=== PATIENT | female | born 1975 | race Caucasian/White ===

== ENCOUNTER → 2016-12-14 | Outpatient (CLI) | payer BC ==
[2016-12-14 17:06] VITALS: BP 129/85; PULSE 68; RESP 14; TEMP 98.3; BMI 33.9
== END | disposition home or self-care (01) ==
LOC: BARWHC3 15:28
PROVIDERS: ATTEND Surgery Plastic and Reconstructive Surgery
DX: Z48.815 Encounter for surgical aftercare following surgery on the digestive system (principal); E66.01 Morbid (severe) obesity due to excess calories; Z68.33 Body mass index [BMI] 33.0-33.9, adult; E21.1 Secondary hyperparathyroidism, not elsewhere classified; E89.1 Postprocedural hypoinsulinemia; Z98.84 Bariatric surgery status; D50.8 Other iron deficiency anemias; E44.0 Moderate protein-calorie malnutrition; E55.9 Vitamin D deficiency, unspecified; K74.1 Hepatic sclerosis; T56.894A Toxic effect of other metals, undetermined, initial encounter; K50.90 Crohn's disease, unspecified, without complications
CPT/HCPCS: 99211

== ENCOUNTER → 2016-12-17 | Outpatient (CLI) | payer BC ==
[2016-12-17 11:30] LABS: CH 27.9; HCT 36.9 % (34.0-46.0); HDW 2.87; HGB 12.2 gm/dL (11.4-16.0); MCV 84.7 fL (80.0-100.0); Mean Platelet Volume 6.8; RBC 4.35 m/uL (3.80-5.40); RDW 13.5 % (11.5-15.5); WBC 5.5 k/uL (3.8-10.6)
[2016-12-17 11:40] LABS: INR 1.1 (<1.1); Partial Thromboplastin Time 25.3 sec (22.0-30.0); Prothrombin Time 10.8 sec (9.0-12.0)
[2016-12-17 11:56] LABS: ALT 30 U/L (9-52); AST 18 U/L (14-36); Alkaline Phosphatase 64 U/L (38-126); Anion Gap 12 mmol/L; Blood Urea Nitrogen 15 mg/dL (7-17); Calcium 9.5 mg/dL (8.4-10.2); Carbon Dioxide 26 mmol/L (22-30); Chloride 105 mmol/L (98-107); Cholesterol 195 mg/dL (<200); Glucose 88 mg/dL (74-99); HDL Cholesterol 51 mg/dL (40-60); Iron 46 ug/dL (37-170); Magnesium 2.1 mg/dL (1.6-2.3); Non-African American GFR(MDRD) >60 (>60 ml/min/1.73 sqM); Phosphorous 4.1 mg/dL (2.5-4.5); Potassium 4.9 mmol/L (3.5-5.1); Sodium 143 mmol/L (137-145); Total Bilirubin 0.5 mg/dL (0.2-1.3); Total Protein 7.5 g/dL (6.3-8.2); Triglycerides 127 mg/dL (<150)
[2016-12-17 12:06] LABS: % Iron Saturation 11.9 % (20-50); Prealbumin 22 mg/dL (18-36); Total Iron Binding Capacity 386 ug/dL (265-497)
[2016-12-17 12:18] LABS: Hemoglobin A1C 4.8 % (4.2-6.1)
[2016-12-17 13:02] LABS: Vitamin B12 985 pg/mL (239-931)
[2016-12-23 11:06] LABS: Selenium 129 mcg/L (63-160)
== END | disposition home or self-care (01) ==
LOC: LABWHC1 10:55
PROVIDERS: ATTEND Surgery Plastic and Reconstructive Surgery
DX: T56.894A Toxic effect of other metals, undetermined, initial encounter (principal); K50.90 Crohn's disease, unspecified, without complications; K74.1 Hepatic sclerosis; E55.9 Vitamin D deficiency, unspecified; K90.89 Other intestinal malabsorption; D50.8 Other iron deficiency anemias; E21.1 Secondary hyperparathyroidism, not elsewhere classified
CPT/HCPCS: 36415; 80053; 80061; 82306; 82525; 82607; 82728; 82746; 83036; 83540; 83550; 83735; 83970; 84100; 84134; 84255; 84425; 84443; 84590; 84630; 85027; 85610; 85730

== ENCOUNTER → 2017-02-09 | Outpatient (CLI) | payer BC ==
[2017-02-09 10:06] VITALS: BP 127/93; PULSE 71; RESP 16; TEMP 98.4; BMI 33.2
--- NOTE | 2017-03-23 20:31 | P.PN ---
Progress Note - Text DATE OF SERVICE: 02/09/2017. CHIEF COMPLAINT: Follow-up sleeve gastrectomy. HISTORY OF PRESENT ILLNESS: Jess Graham is a 41-year-old female who is status post sleeve gastrectomy June 18, 2015. She is less than 2 years out. Her highest weight for her 5-foot, 7-frame is 280 pounds. Her ideal body weight is 158 pounds. Today she comes in weighing 212 pounds. She has lost another 4 pounds in 2 months. Body mass index is reduced from 43.9 to 33.2. Maintained percent excess weight loss 56%. She comes in with troubles with her thyroid. She has been eating moderate amount of carbohydrates. She reports trying to get fit as result she has weight loss. No new medication changes in the last 3 months. PAST MEDICAL HISTORY: 1. Fatty liver disease. 2. Hypertension, improved. 3. Vitamin B12 deficiency. 4. Osteoarthritis of the right knee. 5. Osteoarthritis of the shoulder. 6. Thyroid disorder. 7. Obstructive sleep apnea, improved. PAST SURGICAL HISTORY: 1. Cholecystectomy. 2. Right knee arthroscopy. 3. Removal of polyps along the back. 4. Cholecystectomy. 5. Status post sleeve gastrectomy. MEDICATIONS: 1. Benadryl. 2. control. 3. Omeprazole. 4. Nystatin. 5. Multivitamin. 6. Claritin. 7. Synthroid. 8. Hydrocortisone cream. 9. Calcium. ALLERGIES: ZITHROMAX. SOCIAL HISTORY: Lifelong nontobacco user. FAMILY HISTORY: Notable for morbid obesity. No reports of gastrointestinal cancers. Also has inflammatory bowel disease in her family. REVIEW OF SYSTEMS: CONSTITUTIONAL: Her highest weight for her 5-foot, 7-frame is 280 pounds. Her ideal body weight is 158 pounds. Today she comes in weighing 212 pounds. She has gained 21 pounds from her lowest weight 1 year ago. Since her last visit 2 months ago, she has lost 4 pounds. Body mass index is reduced from 43.9 to 33.2. Maintained percent excess weight loss 56%. Her lowest weight was 191 pounds. RESPIRATORY: Resolved obstructive sleep apnea. Denies asthma. ENDOCRINE: Resolved prediabetic state. History of hypothyroidism. MUSCULOSKELETAL: Osteoarthritis is completely resolved. GASTROINTESTINAL: Now with gastroesophageal reflux disease. No dumping syndrome. HEENT: Wears glasses. No troubles with hearing. CARDIOVASCULAR: History of hypertension. Denies any palpitations. NEURO: No reports of stroke or seizure disorder. PSYCH: No reports of depression or suicidal ideation. HEMATOLOGIC: Denies any easy bruising or bleeding. PHYSICAL EXAM: VITAL SIGNS: 5 feet 7 inches, 212 pounds. Body mass index 33.2. Vital Signs 02/09/17 10:03 Temperature 98.4 F Pulse Rate 71 Respiratory 16 Rate Blood Pressure 127/93 GENERAL: Well-developed female in no acute distress. ABDOMEN: Findings consistent with panniculitis. Soft, nondistended, nontender. MUSCULOSKELETAL: No clubbing, cyanosis, or edema. NEURO: No focal or lateralizing signs. HEENT: No sclerae icterus. Extraocular movements grossly intact. Moist buccal mucosa. NECK: Supple without lymphadenopathy. CHEST: Unlabored respirations with equal bilateral excursions. CARDIOVASCULAR: Regular rate and rhythm. PSYCH: Appropriate affect. Alert and oriented to person, place, and time. ASSESSMENT: 1. Morbid obesity due to excess caloric intake 2. Body mass index reduced from 43.9 down to 33.2. 3. Status post sleeve gastrectomy. 4. Dietary surveillance and counseling. 5. Panniculitis. 6. Weight gain following bariatric procedure. 7. Hypothyroidism. 8. Iatrogenic hyperthyroidism. PLAN: 1. Recommend adjustment of medications for her iatrogenic hyperthyroidism. 2. Recommend recheck of her thyroid stimulating hormone. 3. Recommend adjustment of carbohydrate diet. 4. Recommend dietary journal. 5. Written prescription of her thyroid medication including skin cream was written on her behalf. 6. Follow-up in one year.
== END | disposition home or self-care (01) ==
LOC: BARWHC3 09:27
PROVIDERS: ATTEND Surgery Plastic and Reconstructive Surgery
DX: E66.01 Morbid (severe) obesity due to excess calories (principal); M79.3 Panniculitis, unspecified; R63.5 Abnormal weight gain; E03.9 Hypothyroidism, unspecified; E05.80 Other thyrotoxicosis without thyrotoxic crisis or storm; Z68.33 Body mass index [BMI] 33.0-33.9, adult; Z71.3 Dietary counseling and surveillance; Z98.84 Bariatric surgery status; Z79.899 Other long term (current) drug therapy; Z88.1 Allergy status to other antibiotic agents
CPT/HCPCS: 99211

== ENCOUNTER → 2018-08-07 | Outpatient (CLI) | payer BC ==
--- NOTE | 2018-08-07 14:10 | US ---
EXAMINATION TYPE: US thyroid st tissue head/neck DATE OF EXAM: 08/07/2018 COMPARISON: NONE CLINICAL HISTORY: E04.9 Goiter, E03.9 Hypothyroidism. Patient states being on Thyroid meds. No previ ous imaging. GLAND SIZE: Right Lobe: 5.0 x 1.7 x 1.1 cm Overall Parenchyma: heterogenous Left Lobe: 3.9 x 2.4 x 1.2 cm Overall Parenchyma: heterogeneous Isthmus Thickness: 0.1 cm NODULES RIGHT: # of nodules measured on right: 0 LEFT: # of nodules measured on left: 0 ISTHMUS: # of nodules measured in the isthmus: 0 Bilateral neck scanned, no evidence of lymphadenopathy. Right lobe appears enlarged. IMPRESSION: 1. No suspicious nodules.
== END ==
LOC: RADUSWWP 07:13
PROVIDERS: ATTEND Internal Medicine
DX: E04.9 Nontoxic goiter, unspecified (principal); E03.9 Hypothyroidism, unspecified
CPT/HCPCS: 76536

== ENCOUNTER → 2018-08-08 | Outpatient (CLI) | payer BC ==
--- NOTE | 2018-08-08 09:37 | MM ---
Reason for exam: screening (asymptomatic). Baseline mammogram. History: Took hormonal contraceptives for 8 years beginning at age 21. Physical Findings: Nurse did not find any significant physical abnormalities on exam. MG 3D Screening Mammo W/Cad Bilateral CC and MLO view(s) were taken. There are scattered fibroglandular densities. No suspicious calcifications are seen. Nodule upper outer left breast 5.7cm from nipple. These results were verbally communicated with the patient and result sheet given to the patient on 08/08/18. ASSESSMENT: Incomplete: need additional imaging evaluation, BI-RAD 0 RECOMMENDATION: Ultrasound of the left breast. [facility] will attempt to contact patient to return for ultrasound.
--- NOTE | 2018-08-08 09:38 | USB ---
Reason for exam: additional evaluation requested from abnormal screening. History: Took hormonal contraceptives for 8 years beginning at age 21. Physical Findings: Breast exam preformed at baseline screening. US Breast Workup Limited LT Left limited breast ultrasound including focal area of concern, retroareolar and axilla demonstrates a 5 x 4 x 6mm oval, hypoechoic, vascular lesion at 2 o'clock, possible lymph node. These results were verbally communicated with the patient and result sheet given to the patient on 08/08/18. ASSESSMENT: Benign, BI-RAD 2 RECOMMENDATION: Return to routine screening mammogram schedule for both breasts.
== END | disposition home or self-care (01) ==
LOC: RADMAMWWP 06:55
PROVIDERS: ATTEND Internal Medicine
DX: R92.8 Other abnormal and inconclusive findings on diagnostic imaging of breast (principal)
CPT/HCPCS: 77063; 77067

== ENCOUNTER → 2020-05-26 | Outpatient (CLI) | payer BC ==
--- NOTE | 2020-05-26 12:28 | US ---
EXAMINATION TYPE: US carotid duplex BILAT DATE OF EXAM: 05/26/2020 COMPARISON: NONE CLINICAL HISTORY: 45-year-old female R03. Abnormal blood-pressure reading, without diag. unequal bloo d pressure, right greater than left with difference greater than 20 TECHNIQUE: Carotid duplex ultrasound examination. Indirect Doppler criteria utilized. FINDINGS: EXAM MEASUREMENTS: RIGHT: Peak Systolic Velocity (PSV) cm/sec ----- Right CCA: 103 ----- Right ICA: 118 ----- Right ECA: 98.1 ICA/CCA ratio: 1.15 RIGHT: End Diastole cm/sec ----- Right CCA: 30.5 ----- Right ICA: 71.5 ----- Right ECA: 18.8 LEFT: Peak Systolic Velocity (PSV) cm/sec ----- Left CCA: 84.8 ----- Left ICA: 98.2 ----- Left ECA: 88.9 ICA/CCA ratio: 1.16 LEFT: End Diastole cm/sec ----- Left CCA: 27.7 ----- Left ICA: 61.7 ----- Left ECA: 17.0 VERTEBRALS (direction of flow): Right Vertebral: Antegrade Left Vertebral: Antegrade Rhythm: Normal Clinical Laboratory Technologist notes: Minimal plaque noted bilateral bifurcations. No evidence of significant stenosis IMPRESSION: Peak systolic velocities and ICA/CCA ratios indicate no evidence for hemodynamically significant ICA stenosis on either side. Criteria for Assigning % of Stenosis / Diameter reduction (Estimation based on the indirect measurements of the internal carotid artery velocities (ICA PSV). 1. Normal (no stenosis)=ICA PSV < 125 cm/s: ratio < 2.0: ICA EDV<40 cm/s. 2. Less than 50% stenosis=ICA PSV < 125 cm/s: ratio < 2.0: ICA EDV<40 cm/s. 3. 50 to 69% stenosis=ICA PSV of 125 to 230 cm/s: ration 2.0 ? 4.0: ICA EDV 40-100 cm/s. 4. Greater than 70% stenosis to near occlusion= ICA PSV > 230 cm/s: ratio > 4.0: ICA EDV > 100 cm/s. 5. Near occlusion= ICA PSV velocities may be low or undetectable: variable ratio and ICA EDV. 6. Total occlusion=unable to detect flow.
--- NOTE | 2020-05-27 10:04 | P.ARTDOP ---
Arterial Doppler Upper extremity arterial Doppler: Reason for study: Hand and finger numbness Date of study: 05/26/2020 Findings: Doppler waveforms are multiphasic and normal in appearance throughout. No significant right to left or segmental gradients.. Impression: Normal upper extremity arterial Doppler.
== END | disposition home or self-care (01) ==
LOC: RADUSWWP 07:09
PROVIDERS: ATTEND Internal Medicine
DX: R93.89 Abnormal findings on diagnostic imaging of other specified body structures (principal); R03.0 Elevated blood-pressure reading, without diagnosis of hypertension
CPT/HCPCS: 93880; 93923

== ENCOUNTER 2021-11-02 01:00 | Emergency (ER) | payer BC ==
[2021-11-02] MEDS ORDERED: cloNIDine HCL 0.2 MG TAB PO STA (02:43)
[2021-11-02] MEDS ORDERED: ACETAMINOPHEN TAB 325 MG TAB PO STA (02:43)
--- NOTE | 2021-11-02 03:06 | ED ---
General Adult HPI - General Chief complaint: Recheck/Abnormal Lab/Rx Stated complaint: High BP Time Seen by Provider: 11/02/21 02:29 Source: patient Mode of arrival: ambulatory Limitations: no limitations - History of Present Illness -: hour(s) Location: head Radiation: non-radiation Quality: aching Consistency: constant Improves with: none Worsens with: none Associated Symptoms: headaches Treatments Prior to Arrival: none - Related Data Home Medications Medication Instructions Recorded Confirmed Dania Control 1 tab PO DAILY 09/03/14 02/09/17 Loratadine-Pseudoeph 10-240 mg 1 tab PO DAILY PRN 06/12/15 02/09/17 [Claritin-D 24 Hour] Nystatin 100,000 Unit/gm Powd 1 applic TOPICAL BID PRN 06/12/15 02/09/17 [Mycostatin Powder] Calcium Carbonate [Calcium] 600 mg PO DAILY 10/22/15 02/09/17 Multivitamins, Thera [Multivitamin] 1 tab PO DAILY 10/22/15 02/09/17 Previous Rx's Medication Instructions Recorded Hydrocortisone Cream 1 applic TOPICAL BID #30 cream..g. 07/02/15 [Hydrocortisone 1% Cream] diphenhydrAMINE & Zinc Cream 1 applic TOPICAL TID #30 cream..g. 07/02/15 [Benadryl Cream] Clobetasol Propionate [Temovate 1 applic TOPICAL DIRECTED #1 gm 02/09/17 0.05% Oint] Levothyroxine Sodium [Synthroid] 150 mcg PO DAILY #90 tablet 02/09/17 Allergies Allergy/AdvReac Type Severity Reaction Status Date / Time azithromycin AdvReac Swelling Verified 11/02/21 01:06 [From Zithromax Z-Federico] Review of Systems ROS Statement: Those systems with pertinent positive or pertinent negative responses have been documented in the HPI. ROS Other: All systems not noted in ROS Statement are negative. Constitutional: Denies: fever, chills Respiratory: Denies: cough, dyspnea Cardiovascular: Reports: chest pain. Denies: palpitations Gastrointestinal: Denies: abdominal pain, vomiting, diarrhea Genitourinary: Denies: dysuria, hematuria Musculoskeletal: Denies: back pain Neurological: Reports: headache. Denies: weakness, numbness, paresthesias, confusion Past Medical History Past Medical History: Hypertension, Thyroid Disorder Additional Past Medical History / Comment(s): Fatty liver disease History of Any Multi-Drug Resistant Organisms: None Reported Past Surgical History: Cholecystectomy, Orthopedic Surgery Additional Past Surgical History / Comment(s): RIGHT KNEE ARTHROSCOPYPOLYPS REMOVED FROM BACK, Cholestectomy August 2014.Polyps removed from shoulder many years ago. Past Anesthesia/Blood Transfusion Reactions: No Reported Reaction Past Psychological History: No Psychological Hx Reported Smoking Status: Never smoker Past Alcohol Use History: Rare Past Drug Use History: None Reported - Past Family History Father Family Medical History: Myocardial Infarction (TN) Additional Family Medical History / Comment(s): TN's x 4 or 5 Mother Family Medical History: No Reported History General Exam Limitations: no limitations General appearance: alert, in no apparent distress Head exam: Present: atraumatic, normocephalic Eye exam: Present: normal appearance. Absent: scleral icterus, conjunctival injection ENT exam: Present: normal oropharynx Neck exam: Present: normal inspection, full ROM. Absent: tenderness Respiratory exam: Present: normal lung sounds bilaterally. Absent: respiratory distress, wheezes, rales, rhonchi, stridor Cardiovascular Exam: Present: regular rate, normal rhythm, normal heart sounds. Absent: systolic murmur, diastolic murmur, rubs, gallop GI/Abdominal exam: Present: soft. Absent: distended, tenderness, guarding, rebound, pulsatile mass Extremities exam: Present: normal inspection, normal capillary refill. Absent: pedal edema, calf tenderness Back exam: Present: normal inspection. Absent: CVA tenderness (R) Course Vital Signs 11/02/21 11/02/21 11/02/21 01:04 02:53 03:00 Temperature 98 F Pulse Rate 91 73 73 Respiratory 18 18 16 Rate Blood Pressure 161/106 132/77 128/81 O2 Sat by Pulse 99 100 Oximetry 11/02/21 03:59 Temperature 97.8 F Pulse Rate 73 Respiratory 16 Rate Blood Pressure 112/80 O2 Sat by Pulse 98 Oximetry EKG Findings - EKG Results: EKG: interpreted by MARY JO CARRIZALES, sinus rhythm (Rate 73 bpm), normal axis, normal QRS, normal ST/T, no acute changes Disposition Clinical Impression: Hypertension Disposition: HOME SELF-CARE Condition: Good Instructions (If sedation given, give patient instructions): Hypertension (ED) Is patient prescribed a controlled substance at d/c from ED?: No Referrals: Nonstaff,Physician [Primary Care Provider] - 1-2 days
[2021-11-02 04:02] VITALS: TEMP 97.8
[2021-11-02 04:47] VITALS: BP 104/66; PULSE 59; RESP 15
== END 2021-11-02 04:45 | disposition home or self-care (01) ==
LOC: EC 01:00
DX: I10 Essential (primary) hypertension (principal); Z82.49 Family history of ischemic heart disease and other diseases of the circulatory system; Z88.1 Allergy status to other antibiotic agents
CPT/HCPCS: 93005